=== PATIENT | female | born 1985 ===

== ENCOUNTER 2017-08-02 06:11 | Inpatient (IN) | payer BC, OTHER ==
--- NOTE | 2017-08-01 22:17 | HP ---
General Information - General Information Maternal Age: 32 Grav: 3 Para: 1 SAB: 1 IEA: 0 Estimated Due Date: 08/08/17 Determined By: Early Ultrasound Gestational Age in Weeks and Days: 39 Weeks and 0 Days Maternal Blood Type and Rh: B Negative - Results this Serology/RPR Result: Non-Reactive Rubella Result: Immune HBsAg Result: Negative HIV Result: Negative GBS Culture Result: Negative Past Medical History Delivery History: Hx C/Section, See Records Pertinent Past Medical History: See Records Pertinent Past Surgical History: See Records - Primary LTCS for full term with a transverse lie 2013 Pertinent Family History: See Records - HTN and Diabetes - Antepartal Records Antepartal Records: Reviewed, Complicated by: - Prior Section Review of Systems Constitutional: Comfortable CV Complaint: No Respiratory: Shortness of Breath: No Gastrointestinal: No Nausea/Vomiting, Normal Bowel Movement Genitourinary: No Dysuria, No Bleeding, No Leaking Fluid Musculoskeletal: No Complaint Neurological: No Headache Movement: Normal Exam Allergies/Adverse Reactions: Allergies No Known Allergies Allergy (Verified 08/01/17 15:04) Temp 98.7 BP 110/70 P 72 RR 18 - Measurements Height: 5 ft 3 in Weight: 189 lb Weight in lbs: 189 Body Mass Index (BMI): 33.5 Pre- Weight: 162 lb Weight Gained This : 27 lbs and 0 ozs - Exam Abdomen: No Upper Quadrant Pain Breast: Breast Exam Deferred CVA: No CVA Tenderness Extremities: No Edema Heart: Normal Rhythm/Heart Sounds HEENT: No Significant Findings Lungs: Clear Bilaterally Rectal: Rectal Exam Deferred Reflexes: DTR 2+ Thyroid: No Thyromegaly Other Exam Findings: Physical exam done on 07/28/17 - Abdominal Exam Abdomen Exam: Non-Tender, Fundal Height Consistent with Dates - Ultrasound/Biophysical Profile Ultrasound Status: Not Done Targeted Exam Findings See L&D Outpatient Visit Provider Note for Findings: N/A Cervical Exam: Closed Effacement: 50% Station: High Presenting Part: Vertex Membrane Status: Intact Bleeding/Discharge: None EFM Findings - External Monitor Findings Baseline Heart Rate: 130 Contractions: None Assessment/Plan - Reason for Visit Reason for Visit: Patient scheduled for a Repeat Section at Term. - Plan Plan: IV Hydration, Expedite C/S Delivery, Antibiotic Prophylaxis - Date/Time of Admission Date of Admission: 08/02/17 Time of Admission: 07:00
[~2017-08-02 06:11] MED LIST: Buffered Lidocaine 0.9% SYRIN* 5 ML/SYR SYRINGE INTRADERM ONE; Sodium Citrate/Citric Acid* 15 ML UDC PO ONE
[2017-08-02] MEDS ORDERED: ceFOXitin 2 GM IVPREMIX* 2 GM/50 ML BAG IVPB ONE (07:15)
[2017-08-02] MEDS ORDERED: Phenylephrine IV* 40 MCG/ML 10 ML SYRINGE ONE (07:38)
[2017-08-02] MEDS ORDERED: OXYTOCIN* 10 UNITS/ML 1 ML VIAL ONE (07:38)
[2017-08-02] MEDS ORDERED: Morphine PF AMP (0.5MG/ML)* 5 MG/10 ML AMP ONE (07:38)
[2017-08-02] MEDS ORDERED: Naloxone* 0.4 MG/ML 1 ML VIAL IV PRN ×2 (08:31→08:40)
[2017-08-02] MEDS ORDERED: Ondansetron ODT TAB* 4 MG PO PRN (08:31)
[2017-08-02] MEDS ORDERED: fentaNYL* 50 MCG/ML 2 ML VIAL (100 MCG VIAL) IV PRN (08:31)
[2017-08-02] MEDS ORDERED: oxyCODONE/Acetamin 5/325 MG* TAB PO PRN (08:40)
[2017-08-02] MEDS ORDERED: diPHENhydraMINE IV* 50 MG/ML 1 ml VIAL (BENADRYL) IV PRN (08:40)
[2017-08-02] MEDS ORDERED: Nalbuphine* 20 MG/ML 1 ML VIAL IV PRN (08:40)
[2017-08-02] MEDS ORDERED: Ondansetron INJ* 2 MG/ML VIAL IV PRN (08:40)
[2017-08-02] MEDS ORDERED: fentaNYL* 50 MCG/ML 2 ML VIAL (100 MCG VIAL) ONE (08:48)
[2017-08-02] MEDS ORDERED: Ketorolac INJ* 30 MG/ML 1 ML VIAL ONE (08:51)
[2017-08-02] MEDS ORDERED: Lidocaine 2% PF * 5 ML VIAL ONE (08:53)
[2017-08-02] MEDS ORDERED: Bupivacaine-MPF SPINAL* 7.5 MG/ML - 2ML AMP ONE (08:53)
[2017-08-02] MEDS ORDERED: Dibucaine 1% 28.35 GM TUBE PR PRN (09:22)
[2017-08-02] MEDS ORDERED: Acetaminophen TAB* 325 MG PO PRN (09:22)
[2017-08-02] MEDS ORDERED: Glycerin ADULT SUPP PR PRN (09:22)
[2017-08-02] MEDS ORDERED: Witch Hazel PAD* JAR TOPICAL PRN (09:22)
[2017-08-02] MEDS ORDERED: Zolpidem TAB* 5 MG PO PRN (09:22)
[2017-08-02] MEDS: oxyCODONE/Acetamin 5/325 MG* TAB PO PRN ×3 (12:08→23:52)
[2017-08-02] MEDS: Simethicone TAB* 80 MG TAB.CHEW PO SCH ×3 (13:04→19:46)
[2017-08-02] MEDS: Docusate CAP* 100 MG PO SCH ×2 (13:05→19:46)
[2017-08-02] MEDS: Ibuprofen TAB* 600 MG PO SCH ×2 (16:29→22:01)
[2017-08-03] MEDS: Ibuprofen TAB* 600 MG PO SCH (03:50)
[2017-08-03] MEDS: oxyCODONE/Acetamin 5/325 MG* TAB PO PRN ×4 (04:34→20:04)
[2017-08-03 06:40] LABS: ABS Basophils 0.1 10^3/ul (0-0.2); ABS Eosinophils 0.3 10^3/ul (0-0.6); ABS Lymphocytes 2.1 10^3/ul (1.0-4.8); ABS Monocytes 0.7 10^3/ul (0-0.8); ABS Neutrophils 9.2 10^3/ul (1.5-7.7); ABS Nucleated RBC 0 10^3/ul; Eosinophil % 2.1 % (0-6); Hematocrit 33 % (35-47); Hemoglobin 10.7 g/dl (12.0-16.0); Lymphocyte % 16.8 % (25-47); Mean Corpuscular HGB Conc 33 g/dl (31-36); Mean Corpuscular Hemoglobin 28 pg (27-31); Mean Corpuscular Volume 85 fL (80-97); Mean Platelet Volume 9.6 um3 (7.4-10.4); Nucleated Red Blood Cells % 0; Platelet Count 140 10^3/ul (150-450); Red Blood Count 3.84 10^6/ul (4.0-5.4); Red Cell Distribution Width 16 % (10.5-15); White Blood Count 12.3 10^3/ul (3.5-10.8)
[2017-08-03] MEDS: Docusate CAP* 100 MG PO SCH ×3 (09:43→20:03)
[2017-08-03] MEDS: Simethicone TAB* 80 MG TAB.CHEW PO SCH ×3 (09:43→20:04)
[2017-08-03] MEDS: Ibuprofen TAB* 600 MG PO PRN ×3 (09:44→22:38)
[2017-08-03] MEDS ORDERED: RHO D Immune Globulin (HUMAN)* 300 MCG = 1,500 I.U. INJ IM ONE (16:38)
[2017-08-04] MEDS: oxyCODONE/Acetamin 5/325 MG* TAB PO PRN ×6 (00:47→20:10)
[2017-08-04] MEDS: Ibuprofen TAB* 600 MG PO PRN ×3 (04:48→16:53)
[2017-08-04] MEDS: Ferrous Gluconate TAB* 324 MG TAB PO SCH (07:18)
[2017-08-04] MEDS: Simethicone TAB* 80 MG TAB.CHEW PO SCH ×5 (07:19→20:10)
[2017-08-04] MEDS: Ibuprofen TAB* 600 MG PO SCH ×2 (07:19→07:27)
[2017-08-04] MEDS: Docusate CAP* 100 MG PO SCH ×3 (08:52→20:10)
--- NOTE | 2017-08-04 16:31 | PTEDU ---
Patient Name: ALYCIA MIRANDA ALYCIA MIRANDA selected video: BBOB: Nurturing Your Gorgeous &Growing Baby by t o view on 08/04/2017 at 4:30:44 PM from [id number]
[2017-08-05] MEDS: Ibuprofen TAB* 600 MG PO PRN ×2 (00:22→07:55)
[2017-08-05] MEDS: oxyCODONE/Acetamin 5/325 MG* TAB PO PRN ×3 (00:24→08:54)
[2017-08-05 07:44] VITALS: BP 111/84
[2017-08-05] MEDS: Simethicone TAB* 80 MG TAB.CHEW PO SCH (07:54)
[2017-08-05] MEDS: Docusate CAP* 100 MG PO SCH (07:55)
== END 2017-08-05 11:15 | disposition home or self-care (01) | DRG 766 ==
LOC: MCHOB 06:11
PROVIDERS: ADMIT Obstetrics & Gynecology; ATTEND Obstetrics & Gynecology
PROC: 10D00Z1 Extraction of Products of Conception, Low, Open Approach (ICD-10-PCS; 2017-08-02)
PROC: 4A1HX4Z Monitoring of Products of Conception, Cardiac Electrical Activity, External Approach (ICD-10-PCS; principal; 2017-08-02 07:45)
DX: O34.211 Maternal care for low transverse scar from previous cesarean delivery (principal); O32.1XX0 Maternal care for breech presentation, not applicable or unspecified; O69.81X0 Labor and delivery complicated by cord around neck, without compression, not applicable or unspecified; O32.2XX0 Maternal care for transverse and oblique lie, not applicable or unspecified; Z3A.39 39 weeks gestation of pregnancy; Z37.0 Single live birth
CPT/HCPCS: 36415; 76815; 85025; 85461; 86900; 86901; A9270-GY; J0694; J1885; J2590; J2790; J3010